=== PATIENT | male | born 1985 | race African-American/Black ===

== ENCOUNTER 2021-12-02 05:48 | Emergency (ER) | payer BC, OTHER ==
[~2021-12-02] VITALS: Ht 175.3 cm; Wt 82.0 kg
[2021-12-02] MEDS ORDERED: HYDR25TA PO (07:00)
[2021-12-02 07:01] LABS: EOSINOPHILS % 2.2 % (0.0-5.0); HEMATOCRIT. 41.7 % (42.0-52.0); HEMOGLOBIN. 14.2 g/dL (14.0-18.0); LYMPHOCYTES % 21.4 % (20.0-50.0); MEAN CORPUSCULAR HEMOGLOBIN 33.1 pg (28.0-32.0); MEAN CORPUSCULAR VOLUME 97.1 fL (80.0-94.0); MEAN PLATELET VOLUME 7.7 fl (7.4-10.4); NEUTROPHILS % 67.4 % (40.0-76.0); PLATELET 386 x1000/uL (130-400); RED BLOOD CELL COUNT 4.29 mill/uL (4.7-6.1); RED CELL DISTRIBUTION WIDTH 12.5 % (11.6-14.6)
[2021-12-02 07:07] LABS: CHLORIDE 104 mEq/L (98-107)
[2021-12-02 07:25] VITALS: BP 163/99
== END 2021-12-02 07:26 | disposition home or self-care (01) ==
LOC: ER 05:48
DX: I10 Essential (primary) hypertension (principal)
CPT/HCPCS: 36415; 80053; 85025; 99283